=== PATIENT | male | born 1950 | race Caucasian/White ===

== ENCOUNTER 2019-01-03 09:14 | Day surgery (SDC) | payer BC ==
[2018-12-30 11:09] VITALS: BMI 23.7
[2019-01-03] MEDS ORDERED: PROPOFOL 20 ML ONE ×2 (10:23)
[2019-01-03 11:09] VITALS: PULSE 64; TEMP 97.7
[2019-01-03 11:41] VITALS: BP 118/77
--- NOTE | 2019-01-05 16:25 | PATH ---
Surgical Pathology Report Patient Name: KYRA CASTLE [facility]. Rec. #: [id number] /Age/Gender: 1950 (Age: 68) / M Account: [id number] Location: [facility] Taken: 01/03/2019 Received: 01/03/2019 Reported: 01/05/2019 Physicians: Thuan Mulligan M.D. Specimen(s) Received POLYP SIGMOID COLON Clinical History History of polyps Postoperative diagnosis: Polyp, diverticulosis Final Diagnosis SIGMOID COLON, POLYP, BIOPSY: HYPERPLASTIC POLYP. Electronically Signed Dahlia Reno M.D. Gross Description Received in formalin, labeled "biopsy polyp sigmoid colon" is a soler, irregular portion of soft tissue measuring 0.2 cm. in greatest dimension. The specimen is submitted in toto in one cassette. 01/04/201901/04/2019
== END 2019-01-03 12:10 | disposition home or self-care (01) ==
LOC: FASU-ENDO 09:14
PROVIDERS: ATTEND Internal Medicine Gastroenterology
PROC: 0DBN8ZX Excision of Sigmoid Colon, Via Natural or Artificial Opening Endoscopic, Diagnostic (ICD-10-PCS; principal; 2019-01-03 10:37)
DX: Z86.010 Personal history of colon polyps (principal); K63.5 Polyp of colon; K57.30 Diverticulosis of large intestine without perforation or abscess without bleeding
CPT/HCPCS: 88305-TC

== ENCOUNTER 2023-12-14 09:20 | Day surgery (SDC) | payer OTHER, BC ==
[2023-12-10 12:59] VITALS: BMI 22.3
[2023-12-14] MEDS ORDERED: PROPOFOL 120 ML ONE (10:27)
[2023-12-14 11:28] VITALS: PULSE 73; RESP 16; TEMP 97.3
[2023-12-14 11:30] VITALS: BP 106/70
== END 2023-12-14 11:44 | disposition home or self-care (01) ==
LOC: FASU-ENDO 09:20
PROVIDERS: ATTEND Internal Medicine Gastroenterology
PROC: 0DB98ZX Excision of Duodenum, Via Natural or Artificial Opening Endoscopic, Diagnostic (ICD-10-PCS; 2023-12-14)
PROC: 0DB78ZX Excision of Stomach, Pylorus, Via Natural or Artificial Opening Endoscopic, Diagnostic (ICD-10-PCS; 2023-12-14)
PROC: 0DB68ZX Excision of Stomach, Via Natural or Artificial Opening Endoscopic, Diagnostic (ICD-10-PCS; 2023-12-14)
PROC: 0D748DZ Dilation of Esophagogastric Junction with Intraluminal Device, Via Natural or Artificial Opening Endoscopic (ICD-10-PCS; 2023-12-14)
PROC: 0D7 Gastrointestinal System, Dilation (ICD-10-PCS; 2023-12-14)
PROC: 0DJD8ZZ Inspection of Lower Intestinal Tract, Via Natural or Artificial Opening Endoscopic (ICD-10-PCS; principal; 2023-12-14 10:14)
DX: Z12.11 Encounter for screening for malignant neoplasm of colon (principal); K57.30 Diverticulosis of large intestine without perforation or abscess without bleeding; K29.50 Unspecified chronic gastritis without bleeding; K31.7 Polyp of stomach and duodenum; R13.10 Dysphagia, unspecified; Z86.010 Personal history of colon polyps
CPT/HCPCS: 43239; 43450; G0105; 88305-TC; 88342-TC